=== PATIENT | male | born 1980 ===

== ENCOUNTER 2017-12-08 21:47 | Emergency (ER) | payer MEDICAID ==
[2017-12-08 22:01] VITALS: BMI 33.7
[2017-12-08 22:12] VITALS: RESP 18; TEMP 98.2; O2SAT 100
--- NOTE | 2017-12-08 22:50 | ED PDOC ---
Arrival/HPI - General Chief Complaint: Palpitations Time Seen by Provider: 12/08/17 22:49 Historian: Patient - History of Present Illness Narrative History of Present Illness (Text): 12/08/17 22:49 37 year old male, with no significant past medical history, presents to the emergency department complaining of a near-syncopal episode. Patient was walking around the grocery store when he began to have palpitations and felt dizzy. Patient states this episode lasted for 5 minutes and symptoms have currently resolved. He denies any similar symptoms in the past. Patient denies any fever, chills, chest pain, shortness of breath, nausea, vomiting, diarrhea, urinary symptoms, back pain, neck pain, headache, or any other complaints. Time/Duration: Prior to Arrival Symptom Onset: Sudden Symptom Course: Resolved Activities at Onset: Light Context: Walking (grocery store) Past Medical History - Provider Review Nursing Documentation Reviewed: Yes - Psychiatric Hx Substance Use: No Family/Social History - Physician Review Nursing Documentation Reviewed: Yes Family/Social History: No Known Family HX Smoking Status: Never Smoked Hx Alcohol Use: No Hx Substance Use: No Allergies/Home Meds Allergies/Adverse Reactions: Allergies soy Allergy (Verified 12/08/17 22:03) RASH Home Medications: Home Meds Medication Instructions Recorded Confirmed No Known Home Med 12/08/17 12/08/17 Review of Systems - Physician Review All systems were reviewed & negative as marked: Yes - Review of Systems Constitutional: absent: Fevers, Other (Chills) Respiratory: absent: SOB Cardiovascular: Palpitations, Syncope (near-syncope). absent: Chest Pain Gastrointestinal: absent: Diarrhea, Nausea, Vomiting Genitourinary Male: absent: Dysuria, Frequency, Hematuria Musculoskeletal: absent: Back Pain, Neck Pain Neurological: Dizziness. absent: Headache Physical Exam - Physical Exam Narrative Physical Exam (Text): Gen: VS reviewed, alert, well developed, well nourished, nontoxic, mild distress. ENT: normal pharynx. Eye: EOMI, PERRL. Neck: no JVD, supple, no adenopathy. CV: regular rate, regular rhythm, no rubs, no murmur, no gallops, S1, S2, pulses equal and strong. Pulm: no distress, clear to auscultation, no wheeze, no rhonchi, breath sounds equal, no rales. Abd: soft, nontender, no guarding, no rebound, no rigidity, normal bowel sounds. Ext: no edema. Skin: good color, no rash, no cyanosis. Psych: responds appropriately to questions, normal affect. Neuro: oriented x 3, CN2-12 intact grossly, motor intact, sensation intact. Vital Signs Reviewed: Yes Vital Signs Temp Pulse Resp BP Pulse Ox 12/08/17 22:12 98.2 F 81 18 128/82 100 Temperature: Afebrile Blood Pressure: Normal Pulse: Regular Respiratory Rate: Normal Medical Decision Making ED Course and Treatment: 12/08/17 22:49 Impression: 37 year old male presents complaining of near-syncopal episode associated with palpitations and dizziness while walking in the around a grocery store. Plan: -- EKG -- Labs -- Chest X-ray -- Reassess and disposition Progress Notes: 12/09/17 01:07 patient was seen for brief near syncopal event, no acute associated symptoms such as headache, chest pain, or abdominal pain. patient remained stable throughout ED course and symptom free. Patient understand and agrees to plan and will make the appropriate follow up including cardiology referral. - Lab Interpretations I have reviewed the lab results: Yes - EKG Interpretation EKG Interpretation (Text): 12/08/17 23:56 [id number]: nsr at 72 bpm, nml qrs, nml axis, no acute sttw abn Interpreted by ED Physician: Yes Type: 12 lead EKG - Scribe Statement The provider has reviewed the documentation as recorded by the Keri Vitale Provider Scribe Attestation: All medical record entries made by the Keri were at my direction and personally dictated by me. I have reviewed the chart and agree that the record accurately reflects my personal performance of the history, physical exam, medical decision making, and the department course for this patient. I have also personally directed, reviewed, and agree with the discharge instructions and disposition. Disposition/Present on Arrival - Present on Arrival Any Indicators Present on Arrival: No History of DVT/PE: No History of Uncontrolled Diabetes: No Urinary Catheter: No History of Decub. Ulcer: No History Surgical Site Infection Following: None - Disposition Have Diagnosis and Disposition been Completed?: Yes Diagnosis: Near syncope Disposition: HOME/ ROUTINE Disposition Time: 01:08 Patient Plan: Discharge Patient Problems: Current Active Problems Problem Status Onset Near syncope Acute Condition: STABLE Discharge Instructions (ExitCare): Near Fainting (DC) Additional Instructions: Return for any new or worsening symptoms. You must follow up ZORA PINEDA, thank you for letting us take care of you today. Your provider was Dr. Aplolo Garcia and you were treated for near syncope. The emergency medical care you received today was directed at your acute symptoms. If you were prescribed any medication, please fill it and take as directed. It may take several days for your symptoms to resolve. Return to the Emergency Department if your symptoms worsen, do not improve, or if you have any other problems. Please contact your doctor or call one of the physicians/clinics you have been referred to that are listed on the Patient Visit Information form that is included in your discharge packet. Bring any paperwork you were given at discharge with you along with any medications you are taking to your follow up visit. Our treatment cannot replace ongoing medical care by a primary care provider outside of the emergency department. Thank you for allowing the [facility] team to be part of your care today. If you had an X-Ray or CT scan: A Radiologist will review the ED reading if any change in treatment is needed we will contact you. If you had a blood, urine, or wound culture: It will take several days for the results, if any change in treatment is needed we will contact you. If you had an STI test: It will take 48 hours for the results. Please call after 1 week if you have not heard back. Referrals: [facility] [Outside] - Follow up with primary Dulce Maria Bernal MD [Medical Doctor] - Follow up with primary Forms: [employer] (Greek), WORK NOTE
[2017-12-08 23:44] LABS: BASO # 0.02 K/mm3 (0.0-2.0); BASO % 0.2 % (0.0-3.0); EOS # 0.4 (0.0-0.7); EOS % 3.5 % (1.5-5.0); GRAN # 6.18 (1.4-6.5); GRAN % 61.9 % (50.0-68.0); HEMOGLOBIN 12.8 g/dL (14.0-18.0); LYMPH # 2.8 (1.2-3.4); LYMPH % 27.8 % (22.0-35.0); MEAN CELL VOLUME 83.2 fl (80.0-105.0); MEAN CORPUSCULAR HEMOGLOBIN 27.3 pg (25.0-35.0); MEAN CORPUSCULAR HGB CONC 32.8 g/dl (31.0-37.0); MEAN PLATELET VOLUME 9.7 fl (7.0-11.0); MONO # 0.7 (0.1-0.6); MONO % 6.6 % (1.0-6.0); RBC 4.69 10^6/uL (3.5-6.1); RED CELL DISTRIBUTION WIDTH 13.1 % (11.5-14.5)
[2017-12-08 23:59] LABS: ALB/GLOB RATIO 1.2 (1.1-1.8); ALT/SGPT 38 U/L (7-56); AST/SGOT 39 U/L (17-59); BLOOD UREA NITROGEN 13 mg/dL (7-21); CALCIUM 8.9 mg/dL (8.4-10.5); GFR NON-AFRICAN AMERICAN > 60
[2017-12-09 00:14] LABS: B-TYPE NATRIURETIC PEPTIDE 36.4 pg/mL (0-450)
[2017-12-09 03:07] VITALS: BP 129/78; PULSE 85
--- NOTE | 2017-12-09 09:07 | RAD ---
Date of service: 12/09/2017 HISTORY: dyspnea COMPARISON: No prior. TECHNIQUE: Chest PA and lateral FINDINGS: LUNGS: No active pulmonary disease. PLEURA: No significant pleural effusion identified. No pneumothorax apparent. CARDIOVASCULAR: Normal. OSSEOUS STRUCTURES: No significant abnormalities. VISUALIZED UPPER ABDOMEN: Normal. OTHER FINDINGS: None. IMPRESSION: No active disease.
--- NOTE | 2017-12-09 09:38 | CARD ---
APPROVED REPORT Date of service: 12/08/2017 EKG Measurement Heart [id number] <Conclusion> Normal sinus rhythm Small q waves 2,3,F WNL
== END 2017-12-09 01:26 | disposition home or self-care (01) ==
LOC: ED 21:47
DX: R55 Syncope and collapse (principal)